=== PATIENT | male | born 1970 | race Asian ===

== ENCOUNTER 2017-06-01 09:25 | Emergency (ER) | payer OTHER ==
[~2017-06-01] VITALS: Ht 162.6 cm; Wt 77.3 kg
[~2017-06-01 09:25] MED LIST: ABAC1TAB3 PO; DARU1TAB PO
[2017-06-01 10:01] VITALS: BP 129/59
== END 2017-06-01 10:43 | disposition home or self-care (01) ==
LOC: EMS 09:29
DX: S93.402A Sprain of unspecified ligament of left ankle, initial encounter (principal); I10 Essential (primary) hypertension; E78.00 Pure hypercholesterolemia, unspecified; F17.210 Nicotine dependence, cigarettes, uncomplicated; X50.1XXA Overexertion from prolonged static or awkward postures, initial encounter; Y93.9 Activity, unspecified; Y92.89 Other specified places as the place of occurrence of the external cause; Y99.8 Other external cause status
CPT/HCPCS: 29515; 99284

== ENCOUNTER 2021-12-17 11:56 | Emergency (ER) | payer OTHER ==
[~2021-12-17] VITALS: Ht 162.6 cm; Wt 81.8 kg
[2021-12-17] MEDS ORDERED: INDO-16 PO (18:29)
[2021-12-17] MEDS ORDERED: KETOROLAC TROMETHAMINE 30 MG/ML VIAL IM ONE (18:30)
[2021-12-17 18:38] VITALS: BP 133/78
== END 2021-12-17 18:41 | disposition home or self-care (01) ==
LOC: EMS 11:56
DX: M10.9 Gout, unspecified (principal); E78.00 Pure hypercholesterolemia, unspecified; F32.9 Major depressive disorder, single episode, unspecified; F10.20 Alcohol dependence, uncomplicated; F17.210 Nicotine dependence, cigarettes, uncomplicated; I10 Essential (primary) hypertension
CPT/HCPCS: 73610; 96372; 99283; J1885